=== PATIENT | female | born 1975 | race African-American/Black ===

== ENCOUNTER 2017-01-07 06:12 | Emergency (ER) | payer MEDICAID, OTHER ==
[~2017-01-07] VITALS: Ht 154.9 cm; Wt 73.0 kg
[~2017-01-07 06:12] MED LIST: DICL75 PO
[2017-01-07 06:14] VITALS: BP 123/68; PULSE 65; RESP 16; TEMP 98.3; O2SAT 100
[2017-01-07 06:57] LABS: HEMATOCRIT 32.5 % (35.0-46.0); MEAN CELL VOLUME 81.8 FL (80.0-100.0); MEAN CORPUSCULAR HEMOGLOBIN 26.2 PG (27.0-34.0); PLATELET COUNT 192 TH/MM3 (150-450); RED BLOOD COUNT 3.97 MIL/MM3 (4.00-5.30); RED CELL DISTRIBUTION WIDTH 14.8 % (11.6-17.2)
[2017-01-07 07:04] LABS: HEMO FLAGS AUTO DIFF
[2017-01-07 07:11] LABS: ANION GAP 8 MEQ/L (5-15); AST (GOT) 12 U/L (15-37); BICARBONATE 24.5 MEQ/L (21.0-32.0); BLOOD UREA NITROGEN 14 MG/DL (7-18); CHLORIDE 111 MEQ/L (98-107); GLOMERULAR FILTRATION RATE 73 ML/MIN (>89); POTASSIUM 3.7 MEQ/L (3.5-5.1); SODIUM (NA) 143 MEQ/L (136-145)
[2017-01-07 07:16] LABS: ALKALINE PHOSPHATASE 82 U/L (45-117); ALT (GPT) 16 U/L (10-53); BETA HCG QUANT LESS THAN 1 MIU/ML (0-5); TOTAL BILIRUBIN ADULT 0.2 MG/DL (0.2-1.0)
[2017-01-07 07:27] LABS: BACTERIA, URINE RARE /hpf; BLOOD, URINE MOD (NEG); GLUCOSE,URINE NEG (NEG); KETONE, URINE NEG (NEG); MUCUS URINE FEW /lpf (OCC); NITRITE,URINE NEG (NEG); PH, URINE 5.5 (5.0-8.5); SQUAMOUS EPITHELIAL CELL URINE 4 /hpf (0-5); URINE COLOR YELLOW (YELLW/STRAW)
[2017-01-07 07:47] LABS: COMMENT (UR) CULT NOT INDICATED; CULTURE IF INDICATED CULT NOT INDICATED
[2017-01-07 07:53] LABS: BASOPHILS 2 % (0-2); EOSINOPHILS 1 % (0-4); NEUTROPHIL # MANUAL DIFF 3.3 TH/MM3 (1.8-7.7); POLYS (SEG NEUTROPHILS) 66 % (16-70); SCAN/DIFF FINAL DIFF MANUAL; WBC DIFF SAMPLE 100
[2017-01-07 07:54] LABS: PLATELET ESTIMATE SMEAR NORMAL (NORMAL); PLATELET MORPHOLOGY NORMAL (NORMAL)
[2017-01-07 09:21] VITALS: BP 126/72; PULSE 60; RESP 16; O2SAT 100
[2017-01-07] MEDS ORDERED: FAMOTIDINE 20 MG/2 ML VIAL IV PUSH ONE (09:45)
[2017-01-07] MEDS ORDERED: ONDANSETRON HCL 4 MG/2 ML VIAL IV PUSH ONE (09:45)
[2017-01-07] MEDS ORDERED: SODIUM CHLOR 0.9% 1000 ML INJ 1,000 ML IV ONE (09:45)
[2017-01-07] MEDS ORDERED: KETOROLAC TROMETHAMINE 30 MG/ML (IVP) VIAL IV PUSH ONE (10:15)
[2017-01-07] MEDS ORDERED: IOHEXOL 350 MG/ML 10 ML VIAL (for RAD DIAG) IV ONE (11:26)
[2017-01-07] MEDS ORDERED: metroNIDAZOLE 500 MG TAB PO ONE (11:45)
--- NOTE | 2017-01-07 12:03 | RADRPT ---
EXAM DATE/TIME: 01/07/2017 11:21 [facility] COMPARISON: No previous studies available for comparison. INDICATIONS: Lower abdominal pain. IV CONTRAST: 96 cc Omnipaque 350 (iohexol) IV ORAL CONTRAST: No oral contrast ingested. RADIATION DOSE: 12.38 CTDIvol (mGy) MEDICAL HISTORY: None SURGICAL HISTORY: section. ENCOUNTER: Initial ACUITY: 1 day PAIN SCALE: 7/10 LOCATION: Bilateral lower quadrant TECHNIQUE: Volumetric scanning of the abdomen and pelvis was performed. Using automated exposure control and ad justment of the mA and/or kV according to patient size, radiation dose was kept as low as reasonably achievable to obtain optimal diagnostic quality images. FINDINGS: Lung bases are clear. Liver if free of focal defects. Spleen, pancreas, adrenals and kidneys are un remarkable. There is no ascites or adenopathy. Region of the cecum and terminal ileum are unremarkable. Small cystic areas are seen in both adnexal regions. There is no free fluid evident. There is no adenopathy. CONCLUSION: 1. Small cystic areas in both adnexal regions. 2. There is no free fluid. 3. There is no evidence for appendicitis or diverticulitis. Samir Shah MD FACR on January 07, 2017 at 11:48 Board Certified Radiologist. This report was verified electronically.
--- NOTE | 2017-01-07 12:33 | PD ---
HPI Chief Complaint: Abdominal Pain Time Seen by Provider: 09:37 Travel History International Travel<30 days: No Contact w/Intl Traveler<30days: No Traveled to known affect area: No History of Present Illness HPI Patient is a 41 year old female who comes in complaining of lower abdominal pain. She says she typically gets pain like this when she gets her menstrual period. She says that her periods stopped a couple days ago, but this pain came on again last night. She says it was so severe this morning that she vomited a few times. She says she still has some vaginal spotting. She denies any discharge or foul odor. She denies any dysuria. She denies any fever or chills. She does say she has had some diarrhea today. [facility] Past Medical History Cardiovascular Problems: Yes (MURMUR) Diabetes: No Immune Disorder: No Immunizations Current: Yes Influenza Vaccination: No ?: Not LMP: 3 DAYS AGO Past Surgical History Abdominal Surgery: Yes Section: Yes (x3) Social History Alcohol Use: No Tobacco Use: No Substance Use: No Allergies-Medications (Allergen,Severity, Reaction): Coded Allergies: No Known Allergies (Unverified , 01/07/17) Reported Meds & Prescriptions Reported Meds & Active Scripts Active No Active Prescriptions or Reported Medications Review of Systems Except as stated in HPI: all other systems reviewed are Neg General / Constitutional: No: Fever, Chills HENT: No: Headaches, Lightheadedness Cardiovascular: No: Chest Pain or Discomfort Respiratory: No: Shortness of Breath Gastrointestinal: Positive: Nausea, Vomiting, Diarrhea, Abdominal Pain Genitourinary: Positive: Vaginal Bleeding, No: Dysuria, Discharge Skin: No Rash, No Change in Pigmentation Neurologic: No: Weakness, Dizziness Physical Exam Narrative GENERAL: Awake and alert in no acute distress. SKIN: Warm and dry. HEAD: Atraumatic. Normocephalic. EYES: Pupils equal and round. No scleral icterus. ENT: Mucous membranes pink and moist. NECK: Trachea midline. No JVD. CARDIOVASCULAR: Regular rate and rhythm. No murmur appreciated. RESPIRATORY: No accessory muscle use. Clear to auscultation. Breath sounds equal bilaterally. GASTROINTESTINAL: Abdomen soft, nondistended. Mild tenderness to the right lower quadrant. Tender to palpation of the epigastric area. : Performed in the presence of female logistics assistant. There is scant bleeding from the os. No cervical lesions. No CMT. MUSCULOSKELETAL: No obvious deformities. No clubbing. No cyanosis. No edema. NEUROLOGICAL: Awake and alert. No obvious cranial nerve deficits. Motor grossly within normal limits. Normal speech. PSYCHIATRIC: Appropriate mood and affect; insight and judgment normal. Data Data Last Documented VS Vital Signs Date Time Temp Pulse Resp B/P Pulse Ox O2 Delivery O2 Flow Rate FiO2 01/07/17 09:21 60 16 126/72 100 Room Air 01/07/17 06:14 98.3 Orders Complete Blood Count With Diff (01/07/17 06:19) Comprehensive Metabolic Panel (01/07/17 06:19) Urinalysis - C+S If Indicated (01/07/17 06:19) Lipase (01/07/17 06:19) Beta Hcg (Quant/Titer) (01/07/17 06:19) Iv Access Insert/Monitor (01/07/17 09:43) Wet Prep Profile (01/07/17 09:43) Gc And Chlamydia Pcr (01/07/17 09:43) Ct Abd/Pel W Iv Contrast(Rout) (01/07/17 ) Sodium Chlor 0.9% 1000 Ml Inj (Ns 1000 M (01/07/17 09:45) Ondansetron Inj (Zofran Inj) (01/07/17 09:45) Famotidine Inj (Pepcid Inj) (01/07/17 09:45) Ed Urine Pregnancytest Poc (01/07/17 09:43) Ketorolac Inj (Toradol Inj) (01/07/17 10:15) Iohexol 350 Inj (Omnipaque 350 Inj) (01/07/17 11:26) Metronidazole (Flagyl) (01/07/17 11:45) Labs Laboratory Tests Test 01/07/17 01/07/17 01/07/17 06:25 06:36 10:05 Urine Color YELLOW Urine Turbidity CLEAR Urine pH 5.5 Urine Specific [place] 1.019 Urine Protein TRACE mg/dL Urine Glucose (UA) NEG mg/dL Urine Ketones NEG mg/dL Urine Occult Blood MOD Urine Nitrite NEG Urine Bilirubin NEG Urine Urobilinogen LESS THAN 2.0 MG/DL Urine Leukocyte Esterase NEG Urine RBC 24 /hpf Urine WBC 4 /hpf Urine Squamous Epithelial 4 /hpf Cells Urine Bacteria RARE /hpf Urine Mucus FEW /lpf Microscopic Urinalysis Comment CULT NOT INDICATED White Blood Count 5.0 TH/MM3 Red Blood Count 3.97 MIL/MM3 Hemoglobin 10.4 GM/DL Hematocrit 32.5 % Mean Corpuscular Volume 81.8 FL Mean Corpuscular Hemoglobin 26.2 PG Mean Corpuscular Hemoglobin 32.0 % Concent Red Cell Distribution Width 14.8 % Platelet Count 192 TH/MM3 Mean Platelet Volume 10.5 FL Neutrophils (%) (Auto) % Lymphocytes (%) (Auto) % Monocytes (%) (Auto) % Eosinophils (%) (Auto) % Basophils (%) (Auto) % Neutrophils # (Auto) TH/MM3 Lymphocytes # (Auto) TH/MM3 Monocytes # (Auto) TH/MM3 Eosinophils # (Auto) TH/MM3 Basophils # (Auto) TH/MM3 CBC Comment AUTO DIFF Differential Total Cells 100 Counted Neutrophils % (Manual) 66 % Lymphocytes % 24 % Monocytes % 7 % Eosinophils % 1 % Basophils % 2 % Neutrophils # (Manual) 3.3 TH/MM3 Differential Comment FINAL DIFF MANUAL Platelet Estimate NORMAL Platelet Morphology Comment NORMAL Sodium Level 143 MEQ/L Potassium Level 3.7 MEQ/L Chloride Level 111 MEQ/L Carbon Dioxide Level 24.5 MEQ/L Anion Gap 8 MEQ/L Blood Urea Nitrogen 14 MG/DL Creatinine 1.02 MG/DL Estimat Glomerular Filtration 73 ML/MIN Rate Random Glucose 97 MG/DL Calcium Level 8.4 MG/DL Total Bilirubin 0.2 MG/DL Aspartate Amino Transf 12 U/L (AST/SGOT) Alanine Aminotransferase 16 U/L (ALT/SGPT) Alkaline Phosphatase 82 U/L Total Protein 7.5 GM/DL Albumin 3.6 GM/DL Lipase 139 U/L Human Chorionic Gonadotropin, LESS THAN 1 Quant MIU/ML Clue Cells (Wet Prep) PRESENT Vaginal Trichomonas (Wet Prep) PRESENT Vaginal Yeast (Wet Prep) NONE SEEN Chlamydia trachomatis DNA NOT DETECTED (PCR) Neisseria gonorrhoeae DNA NOT DETECTED (PCR) MDM Medical Decision Making Medical Screen Exam Complete: Yes Emergency Medical Condition: Yes Medical Record Reviewed: Yes Differential Diagnosis UTI versus ovarian cyst versus PID Narrative Course Patient is a 41-year-old female comes in complaining of lower abdominal pain. Exam shows tenderness in the right lower quadrant as well as the epigastric area. exam shows right-sided adnexal tenderness. IV established, labs sent. Labs show no acute abnormalities. Cervical swab sent shows Trichomonas and clue cells. Patient given Flagyl. Swab sent for GC and chlamydia PCR testing. Patient given IV fluids, famotidine, Toradol. CT of the abdomen and pelvis shows bilateral ovarian cysts that are small. Patient informed of the results. She is advised to follow-up with gynecology for ultrasound in the future. Advised to take ibuprofen or naproxen as needed for pain. Currently she is feeling better after medication here. Advised to return as needed for any worsening symptoms. Diagnosis Primary Impression: Ovarian cyst Qualified Code: N83.201 - Cysts of both ovaries Patient Instructions: General Instructions, Ovarian Cyst (ED) Additional Instructions: Your CT shows that you have ovarian cysts. You should follow up with your train controller to have an ultrasound done. Take Ibuprofen or Aleve as needed for pain. Return as needed for any worsening symptoms. Scripts No Active Prescriptions or Reported Meds Disposition: 01 DISCHARGE HOME Condition: Stable Shanta Martínez MD Jan 07, 2017 12:33
[2017-01-07 13:02] LABS: CHLAMYDIA PCR NOT DETECTED (NOT DETECT); NEISSERIA PCR NOT DETECTED (NOT DETECT)
== END 2017-01-07 13:01 | disposition home or self-care (01) ==
LOC: NEPC 06:12
DX: R01.1 Cardiac murmur, unspecified (principal); N83.202 Unspecified ovarian cyst, left side; N83.201 Unspecified ovarian cyst, right side
CPT/HCPCS: 74177; 80053; 81001; 83690; 84702; 84703; 85007; 85027; 87210; 87491; 87591; 96374; 96375; 99284; J1885; J2405; J7030; Q9967

== ENCOUNTER 2017-04-09 08:57 | Emergency (ER) | payer MEDICAID, OTHER ==
[~2017-04-09] VITALS: Ht 165.1 cm; Wt 77.2 kg
[2017-04-09 08:58] VITALS: BP 130/64; PULSE 60; RESP 16; TEMP 98.6; O2SAT 100
[2017-04-09] MEDS ORDERED: IBUPROFEN 600 MG TAB PO ONE (09:30)
[2017-04-09] MEDS ORDERED: FLUORESCEIN SOD 1 MG STRIP EACH EYE ONE (09:30)
[2017-04-09] MEDS ORDERED: TETRACAINE 0.5% OPTH SOLN 4 ML BTL EACH EYE ONE (09:30)
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
[2017-04-09] MEDS ORDERED: PROPARACAINE HCL 0.5% OPHT SOLN 15 ML BTL EACH EYE ONE (10:15)
[2017-04-09] MEDS ORDERED: MOTR200T4 PO (10:34)
[2017-04-09 11:00] VITALS: BP 133/80
== END 2017-04-09 11:01 | disposition home or self-care (01) ==
LOC: NEPD 08:57
DX: S00.03XA Contusion of scalp, initial encounter (principal); H57.11 Ocular pain, right eye; Y04.2XXA Assault by strike against or bumped into by another person, initial encounter; Y93.9 Activity, unspecified; Y92.9 Unspecified place or not applicable; Y99.9 Unspecified external cause status
CPT/HCPCS: 70450